=== PATIENT | male | born 1985 | race African-American/Black ===

== ENCOUNTER 2022-11-24 14:44 | Emergency (ER) | payer SELFPAY ==
[2022-11-24] MEDS ORDERED: Ketorolac Tromethamine 30 MG/ML VIAL ONE (15:28)
== END 2022-11-24 15:54 | disposition home or self-care (01) ==
LOC: CSHERS 14:44
DX: K04.7 Periapical abscess without sinus (principal)
CPT/HCPCS: 96372; 99282; J1885